=== PATIENT | female | born 1985 | race Caucasian/White ===

== ENCOUNTER 2025-01-05 11:20 | Emergency (ER) | payer MEDICAID ==
[~2025-01-05] VITALS: Ht 160 cm; Wt 59.0 kg
[2025-01-05 11:38] VITALS: TEMP 37; O2SAT 100
[2025-01-05] MEDS: LIDOCAINE 5% PATCH TOP STA (14:13)
[2025-01-05] MEDS: KETOROLAC 30MG/ML VIAL IM ONE (14:13)
[2025-01-05] MEDS ORDERED: IBUP-2029 MT (15:23)
[2025-01-05] MEDS ORDERED: LIDO700A30 TP (15:23)
[2025-01-05] MEDS ORDERED: CYCL10TA21 MT (15:23)
[2025-01-05 15:39] VITALS: BP 110/74; PULSE 96; RESP 16; O2SAT 98
== END 2025-01-05 15:40 | disposition home or self-care (01) ==
LOC: ER 11:20
DX: M54.2 Cervicalgia (principal); Z79.899 Other long term (current) drug therapy; Z98.890 Other specified postprocedural states
CPT/HCPCS: 96372; 99283; J1885; Z7610

== ENCOUNTER 2025-02-26 20:42 | Emergency (ER) | payer MEDICAID ==
[~2025-02-26] VITALS: Ht 152.4 cm; Wt 60.3 kg
[~2025-02-26 20:42] MED LIST: CYCL10TA21 MT; IBUP-2029 MT; LIDO700A30 TP
[2025-02-26 20:53] VITALS: O2SAT 98
[2025-02-26 22:07] LABS: CLARITY URINE CLOUDY (CLEAR); COLOR URINE YELLOW (YELLOW); GLUCOSE URINE NEGATIVE (NEGATIVE); KETONES URINE NEGATIVE (NEGATIVE); LEUKOCYTE ESTERASE URINE 1+ (NEGATIVE); NITRITE URINE NEGATIVE (NEGATIVE); OCCULT BLOOD URINE 2+ (NEGATIVE); PH URINE 7.0 (4.5-8.0); PROTEIN URINE NEGATIVE (NEGATIVE); SPECIFIC GRAVITY URINE 1.016 (1.005-1.030); UROBILINOGEN URINE 0.2 E.U./dL (0.2-1.0)
[2025-02-26 22:11] LABS: UCG KIT EXPIRATION DATE 02-12-2027; UCG KIT LOT# 970990; UCG SCREEN NEGATIVE
[2025-02-26 22:26] LABS: BACTERIA URINE 2+; SQUAMOUS EPITHELIAL CELL URINE 2+ /lpf (RARE/1+)
[2025-02-26] MEDS ORDERED: CEPH500C2 MT (22:39)
[2025-02-26] MEDS: CEPHALEXIN 250MG CAPSULE PO ONE (22:48)
[2025-02-26 22:49] VITALS: BP 121/80; PULSE 71; RESP 20; TEMP 36.9; O2SAT 98
== END 2025-02-26 22:50 | disposition home or self-care (01) ==
LOC: ER 20:42
DX: N39.0 Urinary tract infection, site not specified (principal); Z98.890 Other specified postprocedural states
CPT/HCPCS: 81003; 81025; 99283

== ENCOUNTER 2025-05-21 22:40 | Emergency (ER) | payer MEDICAID ==
[~2025-05-21] VITALS: Ht 152.4 cm; Wt 60.0 kg
[~2025-05-21 22:40] MED LIST changes: +CEPH500C2 MT; +IBUP-1455 MT; -IBUP-2029 MT
[2025-05-21 22:51] VITALS: O2SAT 100
[2025-05-21 23:20] VITALS: TEMP 36.9
[2025-05-21] MEDS: ACETAMINOPHEN 500MG TABLET PO ONE (23:30)
[2025-05-21] MEDS: LIDOCAINE 5% PATCH TOP SCH (23:30)
[2025-05-21 23:45] LABS: BASOPHILS % 0.4 % (0.0-2.0); EOSINOPHILS % 2.0 % (0.0-5.0); HEMATOCRIT. 38.1 % (36.0-48.0); HEMOGLOBIN. 12.9 g/dL (12.0-16.0); LYMPHOCYTES % 41.6 % (20.0-50.0); MEAN PLATELET VOLUME 9.2 fl (7.4-10.4); MONOCYTES % 6.1 % (2.0-8.0); NEUTROPHILS % 49.9 % (40.0-76.0); PLATELET 207 x1000/uL (130-400); RED BLOOD CELL COUNT 3.96 mill/uL (4.2-5.4); RED CELL DISTRIBUTION WIDTH 13.6 % (11.6-14.6)
[2025-05-21 23:58] LABS: HCG SCREEN POSITIVE
[2025-05-22 00:01] LABS: CREATININE 0.7 mg/dL (0.6-1.0)
[2025-05-22 00:02] LABS: UREA NITROGEN BLOOD 9 mg/dL (9-23)
[2025-05-22 00:47] LABS: B-HCG QUANTITATIVE 3743 mIU/mL (<6)
[2025-05-22 00:54] VITALS: BP 111/79; PULSE 63; RESP 14; O2SAT 100
== END 2025-05-22 01:20 | disposition home or self-care (01) ==
LOC: ER 22:40 → CMPBEDREQ 05-22 08:48
DX: O02.0 Blighted ovum and nonhydatidiform mole (principal); M54.50 Low back pain, unspecified; R10.20 Pelvic and perineal pain unspecified side; Z3A.01 Less than 8 weeks gestation of pregnancy
CPT/HCPCS: 36415; 76801; 80048; 84702; 84703; 85025; 86850; 86900; 99284